=== PATIENT | female | born 1950 | race Caucasian/White ===

== ENCOUNTER 2023-11-20 08:00 | Outpatient (CLI) | payer MEDICARE ==
--- NOTE | 2023-11-20 13:29 | XRAY Report ---
PROCEDURE: Chest 2V INDICATIONS: ACUTE COUGH, EXPIRATORY WHEEZING TECHNIQUE: 2 views of the chest were acquired. COMPARISON: None. FINDINGS: Surgical changes and devices: None. Lungs and pleura: Bilateral interstitial prominence, which is most notable at the left lower lung zo ne. No pleural effusion or pneumothorax. Mediastinum: Mediastinal contours appear normal. Heart size is normal. Bones and chest wall: No suspicious bony lesions. Overlying soft tissues appear unremarkable. IMPRESSION: Bilateral interstitial prominence is suspicious for a viral or atypical pneumonia versus primary donal a. Reviewed by: Nima Hickey MD on 11/20/2023 1:28 PM [facility] Approved by: Nima Hickey MD on 11/20/2023 1:28 PM [facility] Station ID: [id number]
== END 2023-11-20 23:59 | disposition home or self-care (01) ==
LOC: DI.S 08:00
PROVIDERS: ATTEND Registered Nurse
DX: R06.2 Wheezing (principal); R05.1 Acute cough; R91.8 Other nonspecific abnormal finding of lung field

== ENCOUNTER 2023-12-10 08:00 | Outpatient (CLI) | payer MEDICARE ==
--- NOTE | 2023-12-10 16:40 | XRAY Report ---
PROCEDURE: Chest 2V INDICATIONS: EXPIRATORY WHEEZING TECHNIQUE: 2 views of the chest were acquired. COMPARISON: None. FINDINGS: Surgical changes and devices: None. Lungs and pleura: No pleural effusions or pneumothorax. Lungs are clear. Streaky left basilar air space opacity, presumably atelectasis or scar. Peribronchial cuffing. Mediastinum: Mediastinal contours appear normal. Heart size is normal. Bones and chest wall: No suspicious bony lesions. Overlying soft tissues appear unremarkable. IMPRESSION: Peribronchial cuffing, suggestive of infectious or inflammatory bronchitis. Reviewed by: Burt Tillman MD on 12/10/2023 4:39 PM PST Approved by: Burt Tillman MD on 12/10/2023 4:39 PM PST Station ID: [id number]
== END 2023-12-10 23:59 | disposition home or self-care (01) ==
LOC: DI.S 08:00
PROVIDERS: ATTEND Emergency Medicine
DX: J18.9 Pneumonia, unspecified organism (principal)

== ENCOUNTER 2023-12-10 11:35 | Emergency (ER) | payer MEDICARE ==
[2023-12-10 12:18] VITALS: BP 164/86; O2SAT 96
[2023-12-10 12:32] LABS: BASOPHILS % (AUTO) 0.4 %; EOSINOPHILS # (AUTO) 0.2 10^3/uL (0.0-0.7); EOSINOPHILS % (AUTO) 3.6 %; HCT - HEMATOCRIT 42.7 % (37.0-47.0); HGB - HEMOGLOBIN 13.7 g/dL (12.0-16.0); LYMPHOCYTES % (AUTO) 36.8 %; MEAN CORPUSCULAR HEMOGLOBIN 28.8 pg (27.0-31.0); MEAN CORPUSCULAR HGB CONC 32.1 g/dL (32.0-36.0); MEAN CORPUSCULAR VOLUME 89.9 fL (81.0-99.0); MEAN PLATELET VOLUME 9.1 fL (7.9-10.8); MONOCYTES # (AUTO) 0.4 10^3/uL (0.0-1.0); MONOCYTES % (AUTO) 7.2 %; NEUTROPHILS # (AUTO) 2.8 10^3/uL (1.5-6.6); NEUTROPHILS % (AUTO) 51.8 %; PLT - PLATELET COUNT 218 10^3/uL (130-450); RED BLOOD COUNT 4.75 10^6/uL (4.20-5.40); RED CELL DISTRIBUTION WIDTH 13.1 % (12.0-15.0); WHITE BLOOD COUNT 5.3 x10^3/uL (4.8-10.8)
[2023-12-10 13:04] LABS: ALBUMIN 4.6 g/dL (3.2-5.5); ALBUMIN/GLOBULIN RATIO 1.5 (1.0-2.2); BILIRUBIN,TOTAL 0.5 mg/dL (0.2-1.0); CALCIUM 9.6 mg/dL (8.5-10.3); CREATININE 0.6 mg/dL (0.6-1.3); POTASSIUM 4.3 mmol/L (3.5-4.5); TOTAL PROTEIN 7.6 g/dL (6.4-8.9)
--- NOTE | 2023-12-10 13:09 | ED Physician Documentation ---
PD HPI DYSPNEA - Stated complaint Stated Complaint: WHEEZING,COUGHING - Chief complaint Chief Complaint: Resp - History obtained from History obtained from: Patient - Additional information Additional information: 73-year-old woman has been sick since Helen with cough and wheezing. Seen shortly after the New Year's at the clinic and had an x-ray showing potential viral pneumonia. She was put on amoxicillin, azithromycin, and steroids and albuterol with modest relief but she still continues to cough. She went to the walk-in clinic today where a concern was raised for blood clot and she was sent here for further evaluation and treatment. PD PAST MEDICAL HISTORY - Past Medical History Past Medical History: Yes Cardiovascular: High cholesterol - Past Surgical History Past Surgical History: Yes Ortho: Knee replacement, Rotator cuff repair - Present Medications Home Medications: Ambulatory Orders Medication Instructions Recorded Confirmed Albuterol Sulfate [Proair 90 mcg IH QID PRN 12/10/23 12/10/23 Digihaler] Atorvastatin Calcium 40 mg PO DAILY 12/10/23 12/10/23 Budesonide [Pulmicort Flexhaler] 90 mcg IH BID #1 each 12/10/23 Ezetimibe [Zetia] 10 mg ORAL DAILY 12/10/23 12/10/23 Zolpidem [Ambien] 5 mg PO HS 12/10/23 12/10/23 - Allergies Allergies/Adverse Reactions: Allergies Allergy/AdvReac Type Severity Reaction Status Date / Time No Known Drug Allergies Allergy Verified 12/10/23 12:00 - Social History Does the pt smoke?: No Smoking Status: Never smoker PD ED PE NORMAL - Vitals Vital signs reviewed: Yes - General General: Alert and oriented X 3, No acute distress - HEENT HEENT: PERRL, EOMI - Neck Neck: Supple, no meningeal sign, No bony TTP - Cardiac Cardiac: RRR, No murmur - Respiratory Respiratory: Other (Mild expiratory wheezes, no respiratory distress, no focal findings) - Extremities Extremities: No edema, No calf tenderness / cord - Neuro Neuro: Alert and oriented X 3, Normal speech Results - Vitals Vitals: Vital Signs - 24 hr 12/10/23 11:53 Temperature 36 C L Heart Rate 81 Respiratory 18 Rate Blood Pressure 164/86 H O2 Saturation 96 Oxygen O2 Source Room air - Labs Labs: Laboratory Tests 12/10/23 12/10/23 12/10/23 12:25 12:25 12:25 WBC 5.3 RBC 4.75 Hgb 13.7 Hct 42.7 MCV 89.9 MCH 28.8 MCHC 32.1 RDW 13.1 Plt Count 218 MPV 9.1 Neut # (Auto) 2.8 Lymph # (Auto) 2.0 [place] # (Auto) 0.4 Eos # (Auto) 0.2 Baso # (Auto) 0.0 Absolute Nucleated RBC 0.00 Nucleated RBC % 0.0 D-Dimer 236.3 Sodium 140 Potassium 4.3 Chloride 104 Carbon Dioxide 29 Anion Gap 7.0 BUN 16 Creatinine 0.6 Estimated GFR (MDRD) 98 Glucose 98 Calcium 9.6 Total Bilirubin 0.5 AST 17 ALT 25 Alkaline Phosphatase 102 Total Protein 7.6 Albumin 4.6 Globulin 3.0 Albumin/Globulin Ratio 1.5 Lipase 39 PD Medical Decision Making - ED course ED course: 73-year-old woman with persistent wheezy bronchitis. She was sent from the walk-in clinic with concern for blood clot although her history and physical does not suggest this. A D-dimer was done and negative, ruling out thromboembolic disease. We discussed retrialing steroids but overall this seems like a persistent viral issue and she declined after discussion which is reasonable. Departure - Departure Disposition: 01 Home, Self Care Clinical Impression: Bronchitis Condition: Good Record reviewed to determine appropriate education?: Yes Instructions: ED Bronchitis Asthmatic Prescriptions: Budesonide [Pulmicort Flexhaler] 90 mcg IH BID #1 each Comments: I sent your prescription electronically to the [facility] in [place]. As discussed we did blood work which ruled out blood clot and also basic blood work, CBC and CMP which were normal/negative. I suspect you have a viral bronchitis from persistent RSV, you can continue the albuterol and I sent a steroid inhaler to the pharmacy. Unfortunately RSV symptomatology can last a few months and you should continue conservative care at home but return for new or worsening symptoms. Forms: PCP List Discharge Date/Time: 12/10/23 13:12
== END 2023-12-10 13:12 | disposition home or self-care (01) ==
LOC: ED 11:35
DX: J18.9 Pneumonia, unspecified organism (principal); J40 Bronchitis, not specified as acute or chronic
CPT/HCPCS: 36415; 80053; 83690; 85025; 85379; 99283